=== PATIENT | male | born 1955 | race Hispanic/Latino ===

== ENCOUNTER 2019-06-24 12:58 | Observation (INO) | payer BC, MEDICARE, OTHER ==
[~2019-06-24] VITALS: Ht 172.7 cm; Wt 83.7 kg
[2019-06-24] MEDS ORDERED: LORAZEPAM 2 MG/ML 1 ML VIAL ONE (13:30)
[2019-06-24] MEDS ORDERED: SODIUM CHLORIDE 0.9% 1000ML 1,000 ML IV ONE ×2 (13:32→16:38)
[2019-06-24] MEDS ORDERED: ONDANSETRON HCL 4 MG/2 ML VIAL ONE (13:33)
[2019-06-24 13:44] LABS: BASOPHILS % (AUTO) 1.1 % (0.0-5.0); EOSINOPHILS % (AUTO) 0.8 % (0.0-8.0); HEMATOCRIT 38.3 % (42-54); LYMPHOCYTES % (AUTO) 18.3 % (21.0-51.0); MEAN CORPUSCULAR HEMOGLOBIN 31.2 pg (27.0-33.0); MEAN CORPUSCULAR HGB CONC 34.1 g/dL (32.0-36.0); MEAN CORPUSCULAR VOLUME 91.5 fL (79-99); MONOCYTES % (AUTO) 7.8 % (3.0-13.0); NUCLEATED RED BLOOD CELLS 0.1 % (0.0-0.19); PLATELET COUNT (AUTO) 208 K/uL (130-400); RED BLOOD CELL COUNT(AUTO) 4.19 MIL/uL (4.50-6.20); WHITE BLOOD COUNT (AUTO) 6.5 K/uL (4.8-10.8)
[2019-06-24 14:01] LABS: CARBON DIOXIDE 27 mmol/L (21-32); CHLORIDE 105 mmol/L (101-111); CREATININE 0.8 mg/dL (0.5-1.5); GLOMERULAR FILTR. RATE CALC 103 mL/min (>60); GLUCOSE,RANDOM 65 mg/dL (70-105); SODIUM SERUM 144 mmol/L (136-145); UREA NITROGEN, BLOOD 10 mg/dL (7-18)
[2019-06-24 14:05] LABS: ALBUMIN 4.2 g/dL (3.5-5.0); ASPARTATE AMINOTRANSFERASE 19 U/L (10-37); BILIRUBIN,DIRECT 0.2 mg/dL (0.0-0.3); BILIRUBIN,TOTAL 0.8 mg/dL (0.2-1.0); LIPASE 262 U/L (114-286); TOTAL PROTEIN, SERUM 7.7 g/dL (6.0-8.3)
[2019-06-24 14:24] LABS: ALANINE AMINOTRANSFERASE < 6 U/L (12-78)
[2019-06-24] MEDS ORDERED: SODIUM CHLORIDE 0.9% 1000ML 1,000 ML IV SCH (15:34)
[2019-06-24] MEDS ORDERED: GLUCAGON 1MG KIT 1 MG ML IM PRN (15:45)
[2019-06-24] MEDS ORDERED: DEXTROSE 50%-WATER 50 ML DISP.SYRIN IV PRN (15:45)
[2019-06-24] MEDS ORDERED: ONDANSETRON HCL 4 MG/2 ML VIAL IV PRN (15:45)
[2019-06-24] MEDS: DEXTROSE 5 % AND 0.9 % NACL 1,000 ML IV SCH (16:00)
[2019-06-24 17:13] LABS: APPEARANCE,URINE Clear (CLEAR); BILIRUBIN,URINE Negative (NEGATIVE); COLOR,URINE Yellow (YELLOW); GLUCOSE, URINE (UA) Negative (NEGATIVE); KETONES,URINE Negative (NEGATIVE); LEUKOCYTE ESTERASE ,URINE Negative (NEGATIVE); NITRATE,URINE Negative (NEGATIVE); OCCULT BLOOD,URINE Negative (NEGATIVE); PH,URINE 5.5 (5.0-8.0); PROTEIN,URINE Negative (NEGATIVE)
[2019-06-24] MEDS ORDERED: DEXTROSE 50%-WATER 50 ML DISP.SYRIN IV ONE (18:17)
[2019-06-24] MEDS ORDERED: FAMOTIDINE/PF 20 MG/2 ML VIAL IV ONE (20:51)
[2019-06-24] MEDS: FAMOTIDINE/PF 20 MG/2 ML VIAL IV SCH (21:00)
[2019-06-24 23:40] VITALS: BP 148/78
[2019-06-25] VITALS (24 sets, daily range): BP systolic 121–170; BP diastolic 54–113
[2019-06-25] MEDS ORDERED: GLIP10TA9 PO (01:26)
[2019-06-25] MEDS ORDERED: ROPI1TAB11 PO (01:26)
[2019-06-25] MEDS ORDERED: CARB1TAB20 PO (01:26)
[2019-06-25] MEDS ORDERED: IBUP-2070 PO (01:26)
[2019-06-25] MEDS ORDERED: SERT100T12 PO (01:26)
[2019-06-25] MEDS ORDERED: NITR0.4T50 SL (01:26)
[2019-06-25] MEDS ORDERED: ATOR-2 PO (01:26)
[2019-06-25] MEDS: DEXTROSE 5 % AND 0.9 % NACL 1,000 ML IV SCH ×2 (05:20→22:02)
--- NOTE | 2019-06-25 08:00 | NUR ---
HOLD EVALUATION. Pt NPO FOR EGD. MOBILE EQUIPMENT OPERATOR COMPLETED Pt/CAREGIVER INTERVIEW AT THIS TIME. REPORTS CHOKING EPISODES IN THE HOME. SHE STATES Pt LEAVES FOOD IN HIS MOUTH AND BEGINS TO CHOKE. SHE STATES INCREASED DIFFICULTY WITH LIQUIDS. Pt PREVIOUSLY ON THICKENED LIQUIDS WHILE RECOVERING FROM A FALL. RECOMMEND MBSS FOR TOMORROW WHEN CLEARED BY GI . MOBILE EQUIPMENT OPERATOR COORDINATED CARE WITH NURSE FABRICIO. NURSE TO COORDINATE WITH MD FOR MBSS. MOBILE EQUIPMENT OPERATOR WILL CONTINUE TO FOLLOW Pt AT THIS TIME. Addendum: 06/25/19 at [address] Amended: Links added.
[2019-06-25] MEDS: FAMOTIDINE/PF 20 MG/2 ML VIAL IV SCH ×2 (08:49→22:02)
[2019-06-25] MEDS: CARBIDOPA-LEVODOPA 25-100 TAB PO SCH ×3 (10:00→22:02)
[2019-06-25] MEDS: SERTRALINE HCL 50 MG TABLET PO SCH ×2 (10:00→22:01)
[2019-06-25] MEDS ORDERED: PROPOFOL 10 MG/ML 20ML VIAL IV ONE (14:11)
[2019-06-25] MEDS ORDERED: LIDOCAINE HCL 1% 20 ML VIAL ONE (14:15)
--- NOTE | 2019-06-25 14:18 | NUR ---
DCP CM met with pt discussed dc plans. Pt is independent prior to admission, lives at home with spouse, pt is from [place] but planning to move to the [place] w/spouse, currently staying w/mother in law. Pt has a walker, wheelchair, and cane. Denies any other equipments/services. Pt feels safe to go back home, still drives, spouse and family able to assist with transportation and needs as necessary. DC plan to home once stable. CM to cont to follow up. Addendum: 06/25/19 at 1420 by MEI DO LVN CM Amended: Links added.
[2019-06-25] MEDS ORDERED: ATORVASTATIN CALCIUM 40 MG TABLET PO SCH (21:00)
[2019-06-25] MEDS ORDERED: ROPINIROLE HCL 1 MG TABLET PO SCH (21:00)
[2019-06-26 03:18] VITALS: BP 149/66
[2019-06-26] MEDS: CARBIDOPA-LEVODOPA 25-100 TAB PO SCH (03:57)
[2019-06-26 05:53] LABS: BASOPHILS % (AUTO) 0.8 % (0.0-5.0); EOSINOPHILS % (AUTO) 0.8 % (0.0-8.0); HEMATOCRIT 36.1 % (42-54); LYMPHOCYTES % (AUTO) 13.3 % (21.0-51.0); MEAN CORPUSCULAR HEMOGLOBIN 31.2 pg (27.0-33.0); MEAN CORPUSCULAR HGB CONC 34.1 g/dL (32.0-36.0); MEAN CORPUSCULAR VOLUME 91.5 fL (79-99); MONOCYTES % (AUTO) 7.3 % (3.0-13.0); NEUTROPHILS % (AUTO) 77.8 % (40.0-77.0); PLATELET COUNT (AUTO) 183 K/uL (130-400); RED BLOOD CELL COUNT(AUTO) 3.95 MIL/uL (4.50-6.20); RED CELL DISTRIBUTION WIDTH 14.1 % (11.0-15.5); WHITE BLOOD COUNT (AUTO) 5.4 K/uL (4.8-10.8)
[2019-06-26 06:00] LABS: CREATININE 0.9 mg/dL (0.5-1.5); POTASSIUM 3.4 mmol/L (3.5-5.1)
[2019-06-26 07:44] VITALS: BP 158/83
--- NOTE | 2019-06-26 07:46 | NUR ---
SPOUSE REFUSED TO HAVE NURSING ASSESSMENT DONE TODAY. REQUESTING TO LEAVE AMA AND WANTS TO SPEAK TO SOMEONE ELSE OF HIGHER AUTHORITY. MARY BETH DE LEÓN (CHEMO) NOTIFIED AND WILL FOLLOW UP WITH SPOUSE.
--- NOTE | 2019-06-26 08:07 | NUR ---
Met with pt and in room. showered pt on her own accord. Stated pt smelled of urine and had not had a shower, even though she stated "3 little girls" came into the room at 4 am and attempted to shower pt. also upset that "no doctor has come into this room in 2 days', and that there is "no communication" from MD's to patients/family regarding results. She states "you have good employees, but there's not enough of them." Charge nurse attempted to address concerns, but adamant that she will be taking her home, despite being against medical advice. Notified Rubber Roller Grinder and Med Surg Director. Attempted to call Patient Advocate, no answer. Pt and advised of risks for leaving AMA by primary nurse. PIV removed by same. Pt and left on own recognizance.
--- NOTE | 2019-06-26 08:13 | NUR ---
PATIENT'S SPOUSE SIGNED AMA FORM AT THIS TIME. PER SPOUSE, PATIENT HAS NOT BEEN SEEN BY A PHYSICIAN OR NURSE NOR GIVEN ANY INFORMATION REGARDING PROCEDURE RESULTS SINCE THE START OF ADMISSION. STATED ONLY THE NURSES AID HAS BEEN TAKING VITAL SIGNS THROUGHOUT THE DAY. SPOUSE STATED HER COULD ROT HERE AND NO ONE WOULD EVEN KNOW IT. STATED ROOM HAD A BAD SMELL AND PATIENT HAD NOT BEEN GROOMED AT ALL. SPOUSE VOICED, THERE IS NOT ENOUGH STAFF REGARDING PHYSICIANS AND NURSES TO CARE FOR THESE POOR PATIENTS. SPOUSE STATED WILL BE E-MAILING EVERYONE TODAY REGARDING MANAGEMENT OF THE HOSPITAL. PATIENT LEFT THE FLOOR AMBULATING ASSISTED BY SPOUSE, 20G PIV TO LFA DISCONTINUED, TIP INTACT.
[2019-06-26] MEDS ORDERED: PANTOPRAZOLE SODIUM 40 MG TABLET.DR PO SCH (09:00)
== END 2019-06-26 08:25 | disposition left against medical advice (07) ==
LOC: EDH 12:58 → EDHIP 15:34 → INTOOBSV 15:34 → 4CH 22:07
PROVIDERS: ADMIT Internal Medicine; ATTEND Internal Medicine
DX: R13.10 Dysphagia, unspecified (principal); C18.9 Malignant neoplasm of colon, unspecified; D64.9 Anemia, unspecified; K27.9 Peptic ulcer, site unspecified, unspecified as acute or chronic, without hemorrhage or perforation; K29.70 Gastritis, unspecified, without bleeding; K29.80 Duodenitis without bleeding; K55.20 Angiodysplasia of colon without hemorrhage; K22.2 Esophageal obstruction; G20 Parkinson's disease; E11.9 Type 2 diabetes mellitus without complications; E78.5 Hyperlipidemia, unspecified; I25.10 Atherosclerotic heart disease of native coronary artery without angina pectoris; I11.0 Hypertensive heart disease with heart failure; I50.22 Chronic systolic (congestive) heart failure; R63.4 Abnormal weight loss; E66.9 Obesity, unspecified; F17.290 Nicotine dependence, other tobacco product, uncomplicated; F02.80 Dementia in other diseases classified elsewhere, unspecified severity, without behavioral disturbance, psychotic disturbance, mood disturbance, and anxiety; F41.9 Anxiety disorder, unspecified; G47.33 Obstructive sleep apnea (adult) (pediatric); F32.9 Major depressive disorder, single episode, unspecified; E55.9 Vitamin D deficiency, unspecified; I25.2 Old myocardial infarction; Z86.73 Personal history of transient ischemic attack (TIA), and cerebral infarction without residual deficits; Z95.5 Presence of coronary angioplasty implant and graft; Z79.899 Other long term (current) drug therapy; Z68.28 Body mass index [BMI] 28.0-28.9, adult
CPT/HCPCS: 36415 ×2; 43239; 43248; 71045; 80048 ×2; 80076; 81003; 82948 ×9; 83690; 85025 ×2; 88305 ×2; 93005; 96361; 96374; 96376; 99284; G0378 ×42; J2060; J2405; J2704; J3490 ×3; J7030 ×2; J7042 ×2; J7070

== ENCOUNTER 2022-03-31 11:38 | Emergency (ER) | payer OTHER ==
[~2022-03-31] VITALS: Ht 167.6 cm; Wt 72.6 kg
[~2022-03-31 11:38] MED LIST: ATOR-2 PO; CARB1TAB20 PO; GLIP10TA9 PO; IBUP-2070 PO; NITR0.4T50 SL; ROPI1TAB13 PO; SERT-440 PO
[2022-03-31 12:16] LABS: BASOPHILS % (AUTO) 0.6 % (0.0-5.0); EOSINOPHILS % (AUTO) 0.8 % (0.0-8.0); HEMATOCRIT 38.6 % (42-54); LYMPHOCYTES % (AUTO) 13.6 % (21.0-51.0); MEAN CORPUSCULAR HEMOGLOBIN 30.5 pg (27.0-33.0); MEAN CORPUSCULAR HGB CONC 33.4 g/dL (32.0-36.0); MEAN CORPUSCULAR VOLUME 91.3 fL (79-99); MONOCYTES % (AUTO) 7.1 % (3.0-13.0); NEUTROPHILS % (AUTO) 77.1 % (40.0-77.0); PLATELET COUNT (AUTO) 189 K/uL (130-400); RED BLOOD CELL COUNT(AUTO) 4.23 MIL/uL (4.50-6.20); RED CELL DISTRIBUTION WIDTH 13.4 % (11.0-15.5); WHITE BLOOD COUNT (AUTO) 4.9 K/uL (4.8-10.8)
[2022-03-31] MEDS ORDERED: 0.9%NACL 1000ML 1,000 ML IV ONE (12:30)
[2022-03-31 12:37] LABS: CREATININE 0.7 mg/dL (0.5-1.5); POTASSIUM 3.6 mmol/L (3.5-5.1)
[2022-03-31 12:42] LABS: ALBUMIN 3.8 g/dL (3.5-5.0); BILIRUBIN,TOTAL 1.8 mg/dL (0.2-1.0); MAGNESIUM 1.6 mg/dL (1.80-2.40); TOTAL PROTEIN, SERUM 7.3 g/dL (6.0-8.3)
[2022-03-31] MEDS ORDERED: MAGNESIUM 2GM PREMIX 50ML 50 ML IV SCH (13:30)
[2022-03-31 14:17] LABS: APPEARANCE,URINE Clear (CLEAR); BILIRUBIN,URINE Negative (NEGATIVE); COLOR,URINE Yellow (YELLOW); GLUCOSE, URINE (UA) Negative (NEGATIVE); KETONES,URINE Negative (NEGATIVE); LEUKOCYTE ESTERASE ,URINE Negative (NEGATIVE); NITRATE,URINE Negative (NEGATIVE); OCCULT BLOOD,URINE Moderate (NEGATIVE); PH,URINE 7.5 (5.0-8.0); PROTEIN,URINE Negative (NEGATIVE)
[2022-03-31 14:42] LABS: BACTERIA,URINE Rare /HPF (None Seen); SQUAMOUS EPITHELIAL CELL,UR Rare /HPF (0-2)
[2022-03-31 15:14] VITALS: BP 126/84
== END 2022-03-31 16:24 | disposition home or self-care (01) ==
LOC: EDH 11:38
DX: E86.0 Dehydration (principal); G31.83 Neurocognitive disorder with Lewy bodies; F02.80 Dementia in other diseases classified elsewhere, unspecified severity, without behavioral disturbance, psychotic disturbance, mood disturbance, and anxiety; E11.9 Type 2 diabetes mellitus without complications; E78.00 Pure hypercholesterolemia, unspecified; I10 Essential (primary) hypertension; Z79.1 Long term (current) use of non-steroidal anti-inflammatories (NSAID)
CPT/HCPCS: 36415; 80053; 81001; 82140; 83735; 85025; 96361; 96365; 96366; 99284; J3475; J7030